=== PATIENT | female | born 1970 | race Hispanic/Latino ===

== ENCOUNTER 2017-12-19 22:55 | Emergency (ER) | payer SELFPAY ==
[2017-12-19 23:48] LABS: Absolute Lymphocytes (CBC) 2.3 K/uL (0.7-4.9); Absolute Monocytes 0.5 K/uL (0.1-1.3); Basophils % 0.7 % (0-1.3); Eosinophils % 3.8 % (0-4.4); Hematocrit 34.6 % (36.0-45.0); MCH 30.2 pg (27.0-35.0); MCV 88.1 fL (80-100); MPV 8.3 fL (7.6-11.3); Monocytes % 7.7 % (3.3-12.3); RBC Red Blood Cell Count 3.93 M/uL (3.86-4.86)
[2017-12-20 00:13] LABS: Potassium 3.7 mmol/L (3.5-5.1); Thyroid Stimulating Hormone 1.92 uIU/mL (0.36-3.74)
--- NOTE | 2017-12-20 01:07 | EDPHYS ---
Physician Documentation [facility] Name: Miguelina Price Age: 47 yrs Sex: Female : 1970 Arrival Date: 12/19/2017 Time: 23:01 Bed 20 Private MD: ED Physician Lance Blair HPI: 12/20 00:06 This 47 yrs old Female presents to ER via Ambulatory with complaints of rn Dizziness, Near Syncope. 00:06 The patient presents with lightheadedness. Onset: The symptoms/episode began/occurred 2 rn day(s) ago. Modifying factors: The symptoms are alleviated by nothing, the symptoms are aggravated by nothing. Associated signs and symptoms: Pertinent positives: near-syncope, Pertinent negatives: abdominal pain, chest pain, confusion, focal weakness, head injury, headache, seizure, syncope, vomiting. Severity of symptoms: At their worst the symptoms were moderate in the emergency department the symptoms have resolved. The patient has not experienced similar symptoms in the past. Reports has had 2 episodes of dizziness and flushed feeling to head, almost passed out, at rest, once while kneeling and other while standing, no chest pain/abd pain, no cough/vomiting/diarrhea. Feels fine currently. No new meds/drugs/supplements. No known medical problems. Also reports generalized weakness and fatigue with lack of energy.. 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 - Social history:: Smoking status: Patient/guardian denies using tobacco, never smoked. - Ebola Screening: : Patient negative for fever greater than or equal to 101.5 degrees Fahrenheit, and additional compatible Ebola Virus Disease symptoms. - Family history:: not pertinent. - Hospitalizations: : No recent hospitalization is reported. ROS: 12/20 00:06 Constitutional: Negative for fever, chills, and weight loss, Eyes: Negative for injury, rn pain, redness, and discharge, Neck: Negative for injury, pain, and swelling, Cardiovascular: Negative for chest pain, and edema, Respiratory: Negative for shortness of breath, cough, wheezing, and pleuritic chest pain, Abdomen/GI: Negative for abdominal pain, nausea, vomiting, diarrhea, and constipation, Back: Negative for injury and pain, MS/Extremity: Negative for injury and deformity, Skin: Negative for injury, rash, and discoloration, Neuro: Negative for headache, numbness, tingling, and seizure. Exam: 00:06 Constitutional: This is a well developed, well nourished patient who is awake, alert, rn and in no acute distress. Head/Face: Normocephalic, atraumatic. Eyes: Pupils equal round and reactive to light, extra-ocular motions intact. Lids and lashes normal. Conjunctiva and sclera are non-icteric and not injected. Cornea within normal limits. Periorbital areas with no swelling, redness, or edema. Neck: Trachea midline, no thyromegaly or masses palpated, and no cervical lymphadenopathy. Supple, full range of motion without nuchal rigidity, or vertebral point tenderness. No Meningismus. Cardiovascular: Regular rate and rhythm with a normal S1 and S2. No gallops, murmurs, or rubs. Normal PMI, no JVD. No pulse deficits. Respiratory: Lungs have equal breath sounds bilaterally, clear to auscultation and percussion. No rales, rhonchi or wheezes noted. No increased work of breathing, no retractions or nasal flaring. Abdomen/GI: Soft, non-tender, with normal bowel sounds. No distension or tympany. No guarding or rebound. No evidence of tenderness throughout. Skin: Warm, dry with normal turgor. Normal color with no rashes, no lesions, and no evidence of cellulitis. MS/ Extremity: Pulses equal, no cyanosis. Neurovascular intact. Full, normal range of motion. Equal circumference. Neuro: Awake and alert, GCS 15, oriented to person, place, time, and situation. Cranial nerves II-XII grossly intact. Motor strength 5/5 in all extremities. Sensory grossly intact. Cerebellar exam normal. Normal gait. Vital Signs: 12/19 23:12 BP 127 / 84; Pulse 70; Resp 16; Temp 98.3(O); Pulse Ox 99% on R/A; Weight 77.11 kg (R); sr5 Height 5 ft. 6 in. (167.64 cm); Pain 0/10; 12/20 00:00 BP 141 / 69; Pulse 61; Resp 16; Pulse Ox 98% on R/A; lp1 01:00 BP 155 / 82; Pulse 66; Resp 18; Pulse Ox 98% on R/A; lp1 12/19 23:12 Body Mass Index 27.44 (77.11 kg, 167.64 cm) sr5 MDM: 12/19 23:12 Patient medically screened. rn 12/20 01:06 Differential diagnosis: generalized weakness, hyperventilation, hypovolemia, idiopathic rn dizziness, near-syncope. Data reviewed: vital signs, nurses notes, lab test result(s), EKG, radiologic studies, CT scan, and as a result, I will discharge patient. Counseling: I had a detailed discussion with the patient and/or guardian regarding: the historical points, exam findings, and any diagnostic results supporting the discharge/admit diagnosis, lab results, radiology results, the need for outpatient follow up, to return to the emergency department if symptoms worsen or persist or if there are any questions or concerns that arise at home. Special discussion: I discussed with the patient/guardian in detail that at this point there is no indication for admission to the hospital. It is understood, however, that if the symptoms persist or worsen the patient needs to return immediately for re-evaluation. Based on the history and exam findings, there is no indication for further emergent testing or inpatient evaluation. I discussed with the patient/guardian the need to see the primary care provider for further evaluation of the symptoms. 12/19 23:20 Order name: CBC with Diff; Complete Time: 00:14 rn 12/19 23:20 Order name: Basic Metabolic Panel; Complete Time: 00: 12/19 23:20 Order name: Urine Microscopic Only rn 12/19 23:20 Order name: Troponin (emerg Dept Use Only); Complete Time: 00:14 rn 12/19 23:20 Order name: TSH; Complete Time: 00:14 rn 12/19 23:20 Order name: T4 Free; Complete Time: 00:14 12/19 23:20 Order name: IV Start; Complete Time: 23:59 rn 12/19 23:20 Order name: Urine Dipstick-Ancillary (obtain specimen); Complete Time: 01:25 rn 12/19 23:20 Order name: EKG; Complete Time: 23:21 rn 12/19 23:20 Order name: Gage Screen Profile; Complete Time: 01:05 rn 12/19 23:20 Order name: CT Head Brain wo Cont rn 12/20 01:06 Order name: Urine Dipstick--Ancillary (enter results) pa 12/20 01:06 Order name: Urine --Ancillary (enter results) pa 12/19 23:20 Order name: EKG - Nurse/Tech; Complete Time: 23:58 rn Administered Medications: No medications were administered Disposition: 12/20/17 01:07 Discharged to Home. Impression: Weakness, Near Syncope. - Condition is Stable. - Discharge Instructions: Near-Syncope, Weakness, Fatigue. - Medication Reconciliation Form, Thank You Letter, Antibiotic Education, Prescription Opioid Use form. - Follow up: Private Physician; When: As needed; Reason: Recheck today's complaints, Re-evaluation by your physician. - Problem is new. - Symptoms have improved. Signatures: Dispatcher [employer] EDMO Lance Blair MD MD rn Pena, Laura RN RN lp1 ReseckOren robertson RN RN sr5 Corrections: (The following items were deleted from the chart) : 01:07 12/20/2017 01:07 Discharged to Home. Impression: Weakness; Near Syncope. lp1 Condition is Stable. Forms are Medication Reconciliation Form, Thank You Letter, Antibiotic Education, Prescription Opioid Use. Follow up: Private Physician; When: As needed; Reason: Recheck today's complaints, Re-evaluation by your physician. Problem is new. Symptoms have improved. rn
--- NOTE | 2017-12-20 01:07 | ER ---
Nurse's Notes [facility] Name: Miguelina Price Age: 47 yrs Sex: Female : 1970 Arrival Date: 12/19/2017 Time: 23:01 Bed 20 Private MD: Diagnosis: Weakness;Near Syncope Presentation: 12/19 23:10 Presenting complaint: Patient states: reports 2 episodes of feeling lightheaded, warm sr5 all over, and short of breath. Denies CP. S/s resolved completely without intervention. Denies PMH. AA\T\Ox4, steady gait in lobby, equal unlabored resp, skin warm/dry/nc, clear speech. Transition of care: patient was not received from another setting of care. Onset of symptoms was December 18, 2017. Risk Assessment: Do you want to hurt yourself or someone else? Patient reports no desire to harm self or others. Initial Sepsis Screen: Does the patient meet any 2 criteria? No. Patient's initial sepsis screen is negative. Does the patient have a suspected source of infection? No. Patient's initial sepsis screen is negative. Care prior to arrival: None. 23:10 Method Of Arrival: Ambulatory sr5 23:10 Acuity: SUNNY 3 sr5 Triage Assessment: 23:12 General: Appears in no apparent distress. Behavior is calm, cooperative. Pain: Denies sr5 pain. Neuro: Level of Consciousness is awake, alert, obeys commands, Oriented to person, place, time, situation, Gait is steady, Speech is normal, Facial symmetry appears normal, Reports light headed, no energy, and shortness of breath. Cardiovascular: Capillary refill is brisk in bilateral fingers Patient's skin is warm and dry. Cardiovascular: Reports fatigue, lightheadedness, shortness of breath, Denies chest pain, diaphoresis. Respiratory: Reports shortness of breath at rest Respiratory effort is even, unlabored, Respiratory pattern is regular, symmetrical. GI: No signs and/or symptoms were reported involving the gastrointestinal system. : No signs and/or symptoms were reported regarding the genitourinary system. Derm: No signs and/or symptoms reported regarding the dermatologic system. Musculoskeletal: No signs and/or symptoms reported regarding the musculoskeletal system. 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 - Social history:: Smoking status: Patient/guardian denies using tobacco, never smoked. - Ebola Screening: : Patient negative for fever greater than or equal to 101.5 degrees Fahrenheit, and additional compatible Ebola Virus Disease symptoms. - Family history:: not pertinent. - Hospitalizations: : No recent hospitalization is reported. Screenin:59 Abuse screen: Denies threats or abuse. Denies injuries from another. Nutritional lp1 screening: No deficits noted. Tuberculosis screening: No symptoms or risk factors identified. Fall Risk None identified. Assessment: 23:30 General: Appears in no apparent distress. Behavior is appropriate for age. Pain: Denies lp1 pain. Neuro: Level of Consciousness is awake, alert, obeys commands, Oriented to person, place, time, situation, Peanut Farmer are equal bilaterally Gait is steady, Speech is normal, Facial symmetry appears normal, Pupils are PERRLA, Reports dizziness, a syncopal episode. Cardiovascular: Patient's skin is warm and dry. Rhythm is sinus rhythm. Respiratory: Airway is patent Respiratory effort is even, unlabored, Respiratory pattern is regular, symmetrical, Breath sounds are clear bilaterally. GI: Abdomen is non-distended. : No signs and/or symptoms were reported regarding the genitourinary system. EENT: No signs and/or symptoms were reported regarding the EENT system. Derm: Skin is pink, warm \T\ dry. Musculoskeletal: Circulation, motion, and sensation intact. 12/20 00:29 Reassessment: Patient in CT. lp1 01:25 Reassessment: Patient appears in no apparent distress at this time. Patient is alert, lp1 oriented x 3, equal unlabored respirations, skin warm/dry/pink. Patient states feeling better. Vital Signs: 12/19 23:12 BP 127 / 84; Pulse 70; Resp 16; Temp 98.3(O); Pulse Ox 99% on R/A; Weight 77.11 kg (R); sr5 Height 5 ft. 6 in. (167.64 cm); Pain 0/10; 12/20 00:00 BP 141 / 69; Pulse 61; Resp 16; Pulse Ox 98% on R/A; lp1 01:00 BP 155 / 82; Pulse 66; Resp 18; Pulse Ox 98% on R/A; lp1 12/19 23:12 Body Mass Index 27.44 (77.11 kg, 167.64 cm) sr5 ED Course: 12/19 23:01 Patient arrived in ED. es 23:04 Kelly Montalvo, RN is Primary Nurse. lp1 23:12 Triage completed. sr5 23:12 Lance Blair MD is Attending Physician. rn 23:12 Arm band placed on Patient placed in an exam room, on a stretcher, on manager discovery, sr5 on pulse oximetry. 23:40 Inserted saline lock: 20 gauge in right forearm, using aseptic technique. Blood lp1 collected. 12/20 00:00 Patient has correct armband on for positive identification. Placed in gown. Bed in low lp1 position. Call light in reach. institutional cook on. Pulse ox on. NIBP on. 00:[address] via wheelchair. kw1 00:28 CT Head Brain wo Cont In Process Unspecified. EDMS 00:28 CT completed. Patient tolerated procedure well. Patient moved back from CT. kw1 01:25 No provider procedures requiring assistance completed. IV discontinued, No lp1 redness/swelling at site. Pressure dressing applied. Administered Medications: No medications were administered Outcome: 01:07 Discharge ordered by . rn 01:26 Discharged to home ambulatory, with significant other. lp1 01:26 Condition: good 01:26 Discharge instructions given to patient, Instructed on discharge instructions, follow up and referral plans. Demonstrated understanding of instructions, follow-up care. 01:26 Patient left the ED. lp1 Signatures: Dispatcher [employer] Arianna Dorsey Roman, MD MD rn Pena, Laura, RN RN lp1 Oren Hummel RN RN sr5 Shanae Grullon kw1
[2017-12-20 01:35] LABS: Urine Bacteria <20 /HPF (<20); Urine Culture Reflex Order REFLEXED; Urine RBC <5 /HPF (NONE SEEN)
[2017-12-20 01:36] LABS: Urine Glucose NEGATIVE (NEG)
[2017-12-20 01:37] LABS: Urine Blood TRACE (NEG); Urine Protein NEGATIVE (NEG)
--- NOTE | 2017-12-20 07:14 | RAD REPORT ---
EXAM DESCRIPTION: CT - Head Brain Wo Cont - 12/20/2017 5:34 am CLINICAL HISTORY: Dizziness, near syncope A preliminary report was provided at the time of the study and reviewed prior to final report. COMPARISON: None. TECHNIQUE: Axial 5 mm thick images of the head were obtained without IV contrast. All CT scans are performed using dose optimization technique as appropriate and may include automated exposure control or mA/KV adjustment according to patient size. FINDINGS: No intracranial hemorrhage, mass, edema or shift of mid-line structures. No acute infarcti on changes seen. No abnormal extra-axial fluid collections. Ventricles are normal. Mastoid air cells and visualized portions of the paranasal sinuses are clear. No acute bony findings. IMPRESSION: Negative non-contrast CT head examination.
--- NOTE | 2017-12-20 09:39 | EKG ---
Test Date: 2017-12-19 Test Time: 23:28:29 Lead Miner: CHARLIE MEASUREMENT RESULTS: Intervals: Rate: 66 FL: 180 QRSD: 102 QT: 450 QTc: 471 [place]: P: 53 FL: 180 QRS: -64 T: 14 INTERPRETIVE STATEMENTS: Normal sinus rhythm Left axis deviation Incomplete right bundle branch block Cannot rule out Anterior infarct, age undetermined Abnormal ECG No previous ECG available for comparison Electronically Signed On 12-20-17 09:38:35 CDT by Dilip Lomeli
== END 2017-12-20 01:26 | disposition home or self-care (01) ==
LOC: ER 22:55
DX: R53.1 Weakness (principal)
CPT/HCPCS: 36415; 70450; 80048; 81003; 81015; 81025; 84439; 84443; 84484; 85025; 86308; 87086; 87088; 93005; 99285

== ENCOUNTER 2023-03-07 12:35 | Emergency (ER) | payer OTHER, SELFPAY ==
--- OUTSIDE RECORDS SUMMARY | 2023-03-07 12:39 | XMS REPORT | Continuity of Care Document ---
:1970 Author Organization [facility] t Address [address] [place] [address] [place] [id number] Care Team Providers Name Role Phone Jazmin Cohen MD Primary Care Physician [phone] NOHEMI RABAGO Attending Clinician Unavailable NOHEMI RABAGO Attending Clinician Unavailable ELZBIETA NAVA Attending Clinician Unavailable Doctor Unassigned, [place] Attending Clinician Unavailable Elzbieta Nava MD Attending Clinician Elzbieta Nava Attending Clinician Unavailable ROSS WILSON Attending Clinician Unavailable Jazmin Cohen MD Attending Clinician 2, [facility] Attending Clinician Unavailable Ross Wilson MD Attending Clinician Triny Wylie Attending Clinician Unavailable Team, [facility] Attending Clinician UnavailRaciel Ortiz DO Attending Clinician Pob, [facility] Main Attending Clinician Unavailable Nereyda Valentino DO Attending Clinician NEREYDA VALENTINO Attending Clinician Unavailable JAZMIN COHEN Attending Clinician Unavailable Provider, [facility] Attending Clinician Unavailable Kay Chavez Attending Clinician Elzbieta Nava Admitting Clinician Unavailable Triny Wylie Admitting Clinician Unavailable Physician, No Primary or Family Admitting Clinician UnavailNEREYDA Colbert Admitting Clinician Unavailable Payers Payer Name Policy Type Policy Number Effective Date Expiration Date S ource Problems Condition Condition Condition Status Onset Resolution Last Treating Co mments Source Name Details Category Date Date Treatment Clinician Date Obstructiv Obstructiv Disease Active U nivers e sleep e sleep 2- ity of apnea apnea 00:00: [address] Fatty Fatty Disease Active Univers liver liver 2 ity of 00:00: [address] Hyperchole Hyperchole Disease Active U nivers sterolemia sterolemia 1-20 it y of 00:00: [address] Vitamin D Vitamin D Disease Active Uni vers deficiency deficiency 1-20 it y of 00:00: [address] Abnormal Abnormal Disease Active Unive rs LFTs LFTs 1-20 ity of (liver (liver 00:00: [place] function function 00 Medica l tests) tests) Branch Allergies, Adverse Reactions, Alerts Allergy Allergy Status Severity Reaction(s) Onset Inactive Treating Comm ents Source Name Type Date Date Clinician NO KNOWN Drug Active Univers ALLERGIE Class ity of S [facility] Social History Social Habit Start Date Stop Date Quantity Comments Source History SDOH University o f Alcohol Frequency [place] [facility] History SDOH University o f Alcohol Std Drinks [facility] History SDOH University o f Alcohol Binge [place] [facility] Gender identity Universit y of [facility] Sexual orientation Univer sity of [facility] Exposure to 2022-09-12 2022-09-22 Not sure University of SARS-CoV-2 (event) 00:00:00 08:44:00 [facility] Alcohol intake 2022-09-22 2022-09-22 0 /d University of 00:00:00 00:00:00 [facility] History of Social 2020-02-05 2020-02-05 Univers ity of function 00:00:00 00:00:00 [facility] Tobacco use and 2016-05-15 2016-05-15 Smokeless Universit y of exposure 00:00:00 00:00:00 tobacco non-user [facility] Alcohol Comment 2016-05-15 2016-05-15 socially Universit y of 00:00:00 00:00:00 [facility] Sex [birth year] At [birth year] Universit y of 00:00:00 00:00:00 [facility] Smoking Status Start Date Stop Date Source Never smoked tobacco [facility] Medications Ordered Filled Start Stop Current Ordering Indication Dosage Frequency Signature Comments Components Source Medication Medication Date Date Medication? Clinician (SIG) Name Name phentermine 2022-0 Yes 37.5mg Take 1 Un babita 37.5 mg 5-30 tablet by ity of tablet 09:08: mouth [place] 58 daily with Medical breakfast. [place] phentermine 3-0 Yes 37.5mg Take 1 Un babita 37.5 mg 5-30 tablet by ity of tablet 09:08: mouth [place] 58 daily with Medical breakfast. [place] phentermine 3-0 Yes 37.5mg Take 1 Un babita 37.5 mg 5-30 tablet by ity of tablet 09:08: mouth [place] 58 daily with Medical breakfast. [place] phentermine 3-0 Yes 37.5mg Take 1 Un babita 37.5 mg 5-30 tablet by ity of tablet 09:08: mouth [place] 58 daily with Medical breakfast. [place] phentermine 3-0 Yes 37.5mg Take 1 Un babita 37.5 mg 5-30 tablet by ity of tablet 09:08: mouth [place] 58 daily with Medical breakfast. [place] maalox:diph 2020-2020- No 15mL 15 mL, Uni vers enhydrAMINE 04-27 Oral, ity of :lidocaine 04:45: 04:44 ONCE, 1 [place] as 2 % viscous 00 :00 dose, Fri Med ical 1:1:1 04/26/20 at [place] (FIRST-MOUT 2245, AIMEE HWASH BLM) oral suspension 15 mL ketorolac 2020- No 30mg 30 mg, Unive rs (TORADOL) 04-27 Slow IV ity of injection 04:45: 04:44 Push, [place] 30 mg 00 :00 ONCE, 1 Medical dose, Fri Branch 04/26/20 at 2245, AIMEE
Fa alleghany healthy member approving Restricted medication : NEREYDA VALENTINO DIPHENHYDRA 2020-0 2020- No Take by Un babita MINE HCL 01-21 mouth. ity of (ALLERGY 20:01: 00:00 [place] RELIEF 34 :00 Medical ORAL) Branch fluticasone 2020-0 Yes Use in [facility] ers propionate 01-21 each ity of (FLONASE 19:21: nostril [place] ALLERGY 10 daily. Medical RELIEF) 50 Branch mcg/actuati on nasal spray fluticasone 2020-0 Yes Use in [facility] ers propionate 01-21 each ity of (FLONASE 19:21: nostril [place] ALLERGY 10 daily. Medical RELIEF) 50 Branch mcg/actuati on nasal spray fluticasone 2020-0 Yes Use in [facility] ers propionate 01-21 each ity of (FLONASE 19:21: nostril [place] ALLERGY 10 daily. Medical RELIEF) 50 Branch mcg/actuati on nasal spray fluticasone 2020-0 Yes Use in [facility] ers propionate 01-21 each ity of (FLONASE 19:21: nostril [place] ALLERGY 10 daily. Medical RELIEF) 50 Branch mcg/actuati on nasal spray fluticasone 2020-0 Yes Use in [facility] ers propionate 01-21 each ity of (FLONASE 19:21: nostril [place] ALLERGY 10 daily. Medical RELIEF) 50 Branch mcg/actuati on nasal spray fluticasone 2020-0 Yes Use in [facility] ers propionate 01-21 each ity of (FLONASE 19:21: nostril [place] ALLERGY 10 daily. Medical RELIEF) 50 Branch mcg/actuati on nasal spray fluticasone 2020-0 Yes Use in [facility] ers propionate 01-21 each ity of (FLONASE 19:21: nostril [place] ALLERGY 10 daily. Medical RELIEF) 50 Branch mcg/actuati on nasal spray fluticasone 2020-0 Yes Use in [facility] ers propionate 01-21 each ity of (FLONASE 19:21: nostril [place] ALLERGY 10 daily. Medical RELIEF) 50 Branch mcg/actuati on nasal spray fluticasone 2020-0 Yes Use in [facility] ers propionate 01-21 each ity of (FLONASE 19:21: nostril [place] ALLERGY 10 daily. Medical RELIEF) 50 Branch mcg/actuati on nasal spray fluticasone 2020-0 Yes Use in [facility] ers propionate - each ity of (FLONASE 19:21: nostril [place] ALLERGY 10 daily. Medical RELIEF) 50 Branch mcg/actuati on nasal spray fluticasone 2020-0 Yes Use in [facility] ers propionate - each ity of (FLONASE 19:21: nostril [place] ALLERGY 10 daily. Medical RELIEF) 50 Branch mcg/actuati on nasal spray fluticasone 2020-0 Yes Use in [facility] ers propionate - each ity of (FLONASE 19:21: nostril [place] ALLERGY 10 daily. Medical RELIEF) 50 Branch mcg/actuati on nasal spray fluticasone 2020-0 Yes Use in [facility] ers propionate 01-21 each ity of (FLONASE 19:21: nostril [place] ALLERGY 10 daily. Medical RELIEF) 50 Branch mcg/actuati on nasal spray fluticasone 2020-0 Yes Use in [facility] ers propionate - each ity of (FLONASE 19:21: nostril [place] ALLERGY 10 daily. Medical RELIEF) 50 Branch mcg/actuati on nasal spray fluticasone 2020-0 Yes Use in [facility] ers propionate - each ity of (FLONASE 19:21: nostril [place] ALLERGY 10 daily. Medical RELIEF) 50 Branch mcg/actuati on nasal spray fluticasone 2020-0 Yes Use in [facility] ers propionate - each ity of (FLONASE 14:21: nostril [place] ALLERGY 10 daily. Medical RELIEF) 50 Branch mcg/actuati on nasal spray fluticasone 2020-0 Yes Use in [facility] ers propionate - each ity of (FLONASE 14:21: nostril [place] ALLERGY 10 daily. Medical RELIEF) 50 Branch mcg/actuati on nasal spray fluticasone 2020-0 Yes Use in [facility] ers propionate - each ity of (FLONASE 14:21: nostril [place] ALLERGY 10 daily. Medical RELIEF) 50 Branch mcg/actuati on nasal spray fluticasone 2020-0 Yes Use in [facility] ers propionate - each ity of (FLONASE 14:21: nostril [place] ALLERGY 10 daily. Medical RELIEF) 50 Branch mcg/actuati on nasal spray fluticasone 2020-0 Yes Use in Univ ers propionate - each ity of (FLONASE 14:21: nostril [place] ALLERGY 10 daily. Medical RELIEF) 50 Branch mcg/actuati on nasal spray fluticasone 2020-0 Yes Use in Univ ers propionate - each ity of (FLONASE 14:21: nostril [place] ALLERGY 10 daily. Medical RELIEF) 50 Branch mcg/actuati on nasal spray fluticasone 2020-0 Yes Use in Univ ers propionate - each ity of (FLONASE 14:21: nostril [place] ALLERGY 10 daily. Medical RELIEF) 50 Branch mcg/actuati on nasal spray fluticasone 2020-0 Yes Use in [facility] ers propionate - each ity of (FLONASE 14:21: nostril [place] ALLERGY 10 daily. Medical RELIEF) 50 Branch mcg/actuati on nasal spray fluticasone 2020-0 Yes Use in [facility] ers propionate 01-21 each ity of (FLONASE 14:21: nostril [place] ALLERGY 10 daily. Medical RELIEF) 50 Branch mcg/actuati on nasal spray fluticasone 2020-0 Yes Use in [facility] ers propionate - each ity of (FLONASE 14:21: nostril [place] ALLERGY 10 daily. Medical RELIEF) 50 Branch mcg/actuati on nasal spray fluticasone 2020-0 Yes Use in [facility] ers propionate 01-21 each ity of (FLONASE 14:21: nostril [place] ALLERGY 10 daily. Medical RELIEF) 50 Branch mcg/actuati on nasal spray fluticasone 2020-0 Yes Use in [facility] ers propionate 01-21 each ity of (FLONASE 14:21: nostril [place] ALLERGY 10 daily. Medical RELIEF) 50 Branch mcg/actuati on nasal spray bromphenira 2020-0 2020- No [id number] 5mL Take 5 mL Univers mine-pseudo - 10-09 by mouth 4 i ty of ephedrine-D 00:00: 04:59 (four) [place] as M (BROMFED 00 :00 times Medical DM) 2-30-10 daily as Bran ch mg/5 mL needed for syrup Congestion /Allergies for up to 10 days. bromphenira 2020-0 2020- No [id number] 5mL Take 5 mL Univers mine-pseudo 01-21 by mouth 4 i ty of ephedrine-D 00:00: 04:59 (four) [place] as M (BROMFED 00 :00 times Medical DM) 2-30-10 daily as Bran ch mg/5 mL needed for syrup Congestion /Allergies for up to 10 days. bromphenira 2020-0 2020- No [id number] 5mL Take 5 mL Univers mine-pseudo 01-21 by mouth 4 i ty of ephedrine-D 00:00: 04:59 (four) [place] as M (BROMFED 00 :00 times Medical DM) 2-30-10 daily as Bran ch mg/5 mL needed for syrup Congestion /Allergies for up to 10 days. methylPREDN 2020-0 2020- No [id number] Take by Acquia ISolone 4 01-21 mouth ity of mg tablets 00:00: 04:59 SEE-INSTRU [place] 00 :00 CTIONS for Medical 6 days. Branch follow package directions methylPREDN 2019-0 2019- No [id number] Take by [facility]ia [employer] [place] 4 01-21-05 mouth ity of mg tablets 00:00: 04:59 SEE-INSTRU [place] 00 :00 CTIONS for Medical 6 days. Branch follow package directions mupirocin 2 Yes [id number] Apply to Univers % ointment 3-29 area(s) 3 ity of 00:00: (three) [place] 00 times Medical daily. Branch Olopatadine Yes [id number] 1[drp] Place 1 Univers (PATADAY) 3-29 9102 Drop in ity of 0.2 % 00:00: each eye [place] ophthalmic 00 daily. Medical drops Branch mupirocin 2 Yes [id number] Apply to Univers % ointment 3-29 area(s) 3 ity of 00:00: (three) [place] 00 times Medical daily. Branch Olopatadine Yes [id number] 1[drp] Place 1 Univers (PATADAY) 3-29 9102 Drop in ity of 0.2 % 00:00: each eye [place] ophthalmic 00 daily. Medical drops Branch mupirocin 2 Yes [id number] Apply to Univers % ointment 3-29 area(s) 3 ity of 00:00: (three) [place] 00 times Medical daily. Branch Olopatadine Yes [id number] 1[drp] Place 1 Univers (PATADAY) 3-29 9102 Drop in ity of 0.2 % 00:00: each eye [place] ophthalmic 00 daily. Medical drops Branch mupirocin 2 Yes [id number] Apply to Univers % ointment 3-29 area(s) 3 ity of 00:00: (three) [place] 00 times Medical daily. Branch Olopatadine Yes [id number] 1[drp] Place 1 Univers (PATADAY) 3-29 9102 Drop in ity of 0.2 % 00:00: each eye [place] ophthalmic 00 daily. Medical drops Branch mupirocin 2 Yes [id number] Apply to Univers % ointment 3-29 area(s) 3 ity of 00:00: (three) [place] 00 times Medical daily. Branch Olopatadine Yes [id number] 1[drp] Place 1 Univers (PATADAY) 3-29 9102 Drop in ity of 0.2 % 00:00: each eye [place] ophthalmic 00 daily. Medical drops Branch mupirocin 2 Yes [id number] Apply to Univers % ointment 3-29 area(s) 3 ity of 00:00: (three) [place] 00 times Medical daily. Branch Olopatadine Yes [id number] 1[drp] Place 1 Univers (PATADAY) 3-29 9102 Drop in ity of 0.2 % 00:00: each eye [place] ophthalmic 00 daily. Medical drops Branch mupirocin 2 Yes [id number] Apply to Univers % ointment 3-29 area(s) 3 ity of 00:00: (three) [place] 00 times Medical daily. Branch Olopatadine Yes [id number] 1[drp] Place 1 Univers (PATADAY) 3-29 9102 Drop in ity of 0.2 % 00:00: each eye [place] ophthalmic 00 daily. Medical drops Branch mupirocin 2 Yes [id number] Apply to Univers % ointment 3-29 area(s) 3 ity of 00:00: (three) [place] 00 times Medical daily. Branch Olopatadine Yes [id number] 1[drp] Place 1 Univers (PATADAY) 3-29 9102 Drop in ity of 0.2 % 00:00: each eye [place] ophthalmic 00 daily. Medical drops Branch mupirocin 2 Yes [id number] Apply to Univers % ointment 3-29 area(s) 3 ity of 00:00: (three) [place] 00 times Medical daily. Branch Olopatadine Yes [id number] 1[drp] Place 1 Univers (PATADAY) 3-29 9102 Drop in ity of 0.2 % 00:00: each eye [place] ophthalmic 00 daily. Medical drops Branch mupirocin 2 Yes [id number] Apply to Univers % ointment 3-29 area(s) 3 ity of 00:00: (three) [place] 00 times Medical daily. Branch Olopatadine Yes [id number] 1[drp] Place 1 Univers (PATADAY) 3-29 9102 Drop in ity of 0.2 % 00:00: each eye [place] ophthalmic 00 daily. Medical drops Branch mupirocin 2 Yes [id number] Apply to Univers % ointment 3-29 area(s) 3 ity of 00:00: (three) [place] 00 times Medical daily. Branch Olopatadine Yes [id number] 1[drp] Place 1 Univers (PATADAY) 3-29 9102 Drop in ity of 0.2 % 00:00: each eye [place] ophthalmic 00 daily. Medical drops Branch mupirocin 2 Yes [id number] Apply to Univers % ointment 3-29 area(s) 3 ity of 00:00: (three) [place] 00 times Medical daily. Branch Olopatadine Yes [id number] 1[drp] Place 1 Univers (PATADAY) 3-29 9102 Drop in ity of 0.2 % 00:00: each eye [place] ophthalmic 00 daily. Medical drops Branch mupirocin 2 Yes [id number] Apply to Univers % ointment 3-29 area(s) 3 ity of 00:00: (three) [place] 00 times Medical daily. Branch Olopatadine Yes [id number] 1[drp] Place 1 Univers (PATADAY) 3-29 9102 Drop in ity of 0.2 % 00:00: each eye [place] ophthalmic 00 daily. Medical drops Branch mupirocin 2 Yes [id number] Apply to Univers % ointment 3-29 area(s) 3 ity of 00:00: (three) [place] 00 times Medical daily. Branch Olopatadine Yes [id number] 1[drp] Place 1 Univers (PATADAY) 3-29 9102 Drop in ity of 0.2 % 00:00: each eye [place] ophthalmic 00 daily. Medical drops Branch mupirocin 2 Yes [id number] Apply to Univers % ointment 3-29 area(s) 3 ity of 00:00: (three) [place] 00 times Medical daily. Branch Olopatadine Yes [id number] 1[drp] Place 1 Univers (PATADAY) 3-29 9102 Drop in ity of 0.2 % 00:00: each eye [place] ophthalmic 00 daily. Medical drops Branch mupirocin 2 Yes [id number] Apply to Univers % ointment 3-29 area(s) 3 ity of 00:00: (three) [place] 00 times Medical daily. Branch Olopatadine Yes [id number] 1[drp] Place 1 Univers (PATADAY) 3-29 9102 Drop in ity of 0.2 % 00:00: each eye [place] ophthalmic 00 daily. Medical drops Branch mupirocin 2 Yes [id number] Apply to Univers % ointment 3-29 area(s) 3 ity of 00:00: (three) [place] 00 times Medical daily. Branch Olopatadine Yes [id number] 1[drp] Place 1 Univers (PATADAY) 3-29 9102 Drop in ity of 0.2 % 00:00: each eye [place] ophthalmic 00 daily. Medical drops Branch mupirocin 2 Yes [id number] Apply to Univers % ointment 3-29 area(s) 3 ity of 00:00: (three) [place] 00 times Medical daily. Branch Olopatadine Yes [id number] 1[drp] Place 1 Univers (PATADAY) 3-29 9102 Drop in ity of 0.2 % 00:00: each eye [place] ophthalmic 00 daily. Medical drops Branch mupirocin 2 Yes [id number] Apply to Univers % ointment 3-29 area(s) 3 ity of 00:00: (three) [place] 00 times Medical daily. Branch Olopatadine Yes [id number] 1[drp] Place 1 Univers (PATADAY) 3-29 9102 Drop in ity of 0.2 % 00:00: each eye [place] ophthalmic 00 daily. Medical drops Branch mupirocin 2 Yes [id number] Apply to Univers % ointment 3-29 area(s) 3 ity of 00:00: (three) [place] 00 times Medical daily. Branch Olopatadine Yes [id number] 1[drp] Place 1 Univers (PATADAY) 3-29 9102 Drop in ity of 0.2 % 00:00: each eye [place] ophthalmic 00 daily. Medical drops Branch mupirocin 2 Yes [id number] Apply to Univers % ointment 3-29 area(s) 3 ity of 00:00: (three) [place] 00 times Medical daily. Branch mupirocin 2 Yes [id number] Apply to Univers % ointment 3-29 area(s) 3 ity of 00:00: (three) [place] 00 times Medical daily. Branch Olopatadine Yes [id number] 1[drp] Place 1 Univers (PATADAY) 3-29 9102 Drop in ity of 0.2 % 00:00: each eye [place] ophthalmic 00 daily. Medical drops Branch Olopatadine Yes [id number] 1[drp] Place 1 Univers (PATADAY) 3-29 9102 Drop in ity of 0.2 % 00:00: each eye [place] ophthalmic 00 daily. Medical drops Branch mupirocin 2 Yes [id number] Apply to Univers % ointment 3-29 area(s) 3 ity of 00:00: (three) [place] 00 times Medical daily. Branch Olopatadine Yes [id number] 1[drp] Place 1 Univers (PATADAY) 3-29 9102 Drop in ity of 0.2 % 00:00: each eye [place] ophthalmic 00 daily. Medical drops Branch mupirocin 2 Yes [id number] Apply to Univers % ointment 3-29 area(s) 3 ity of 00:00: (three) [place] 00 times Medical daily. Branch Olopatadine Yes [id number] 1[drp] Place 1 Univers (PATADAY) 3-29 9102 Drop in ity of 0.2 % 00:00: each eye [place] ophthalmic 00 daily. Medical drops Branch mupirocin 2 Yes [id number] Apply to Univers % ointment 3-29 area(s) 3 ity of 00:00: (three) [place] 00 times Medical daily. Branch Olopatadine Yes [id number] 1[drp] Place 1 Univers (PATADAY) 3-29 9102 Drop in ity of 0.2 % 00:00: each eye [place] ophthalmic 00 daily. Medical drops Branch mupirocin 2 Yes [id number] Apply to Univers % ointment 3-29 area(s) 3 ity of 00:00: (three) [place] 00 times Medical daily. Branch Olopatadine Yes [id number] 1[drp] Place 1 Univers (PATADAY) 3-29 9102 Drop in ity of 0.2 % 00:00: each eye [place] ophthalmic 00 daily. Medical drops Branch mupirocin 2 Yes [id number] Apply to Univers % ointment 3-29 area(s) 3 ity of 00:00: (three) [place] 00 times Medical daily. Branch Olopatadine Yes [id number] 1[drp] Place 1 Univers (PATADAY) 3-29 9102 Drop in ity of 0.2 % 00:00: each eye [place] ophthalmic 00 daily. Medical drops Branch Cholecalcif Yes [id number] 2000U Take 1 Univers robert, 1-20 capsule by ity of Vitamin D3, 00:00: mouth [place] (VITAMIN 00 daily. Medical D3) 2,000 TAKE WITH [facility] h unit FOOD capsule methocarbam Yes [id number] 500mg Take 1 Univers ol 500 mg 1-20 tablet by ity o f tablet 00:00: mouth 4 [place] 00 (four) Medical times Branch daily as needed (muscle pain or spasm). Cholecalcif Yes [id number] 2000U Take 1 Univers robert, 1-20 capsule by ity of Vitamin D3, 00:00: mouth [place] (VITAMIN 00 daily. Medical D3) 2,000 TAKE WITH Branc h unit FOOD capsule methocarbam 2016-0 Yes [id number] 500mg Take 1 Univers ol 500 mg 1-20 tablet by ity o f tablet 00:00: mouth 4 00 (four) Medical times Branch daily as needed (muscle pain or spasm). Cholecalcif Yes [id number] 2000U Take 1 Univers robert, 1-20 capsule by ity of Vitamin D3, 00:00: mouth [place] (VITAMIN 00 daily. Medical D3) 2,000 TAKE WITH Branc h unit FOOD capsule methocarbam 2016-0 Yes [id number] 500mg Take 1 Univers ol 500 mg 1-20 tablet by ity o f tablet 00:00: mouth 4 00 (four) Medical times Branch daily as needed (muscle pain or spasm). Cholecalcif Yes [id number] 2000U Take 1 Univers robert, 1-20 capsule by ity of Vitamin D3, 00:00: mouth [place] (VITAMIN 00 daily. Medical D3) 2,000 TAKE WITH Branc h unit FOOD capsule methocarbam 2016-0 Yes [id number] 500mg Take 1 Univers ol 500 mg 1-20 tablet by ity o f tablet 00:00: mouth 4 (four) Medical times Branch daily as needed (muscle pain or spasm). Cholecalcif Yes [id number] 2000U Take 1 Univers robert, 1-20 capsule by ity of Vitamin D3, 00:00: mouth [place] (VITAMIN 00 daily. Medical D3) 2,000 TAKE WITH Branc h unit FOOD capsule Cholecalcif 2016-0 Yes [id number] 2000U Take 1 Univers robert, 1-20 capsule by ity of Vitamin D3, 00:00: mouth [place] (VITAMIN 00 daily. Medical D3) 2,000 TAKE WITH Branc h unit FOOD capsule methocarbam 2016-0 Yes [id number] 500mg Take 1 Univers ol 500 mg 1-20 tablet by ity o f tablet 00:00: mouth 4 [place] 00 (four) Medical times Branch daily as needed (muscle pain or spasm). methocarbam 2017-0 Yes [id number] 500mg Take 1 Univers ol 500 mg 1-20 tablet by ity o f tablet 00:00: mouth (four) Medical times Branch daily as needed (muscle pain or spasm). Cholecalcif 2017- Yes [id number] 2000U Take 1 Univers robert, 1-20 capsule by ity of Vitamin D3, 00:00: mouth (VITAMIN 00 daily. Medical D3) 2,000 TAKE WITH Branc h unit FOOD capsule methocarbam 2017-0 Yes [id number] 500mg Take 1 Univers ol 500 mg 1-20 tablet by ity o f tablet 00:00: mouth (four) Medical times Branch daily as needed (muscle pain or spasm). Cholecalcif 2016- Yes [id number] 2000U Take 1 Univers robert, 1-20 capsule by ity of Vitamin D3, 00:00: mouth (VITAMIN 00 daily. Medical D3) 2,000 TAKE WITH Branc h unit FOOD capsule methocarbam 2016-0 Yes [id number] 500mg Take 1 Univers ol 500 mg 1-20 tablet by ity o f tablet 00:00: mouth (four) Medical times Branch daily as needed (muscle pain or spasm). Cholecalcif 2016-0 Yes [id number] 2000U Take 1 Univers robert, 1-20 capsule by ity of Vitamin D3, 00:00: mouth (VITAMIN 00 daily. Medical D3) 2,000 TAKE WITH Branc h unit FOOD capsule methocarbam 2017-0 Yes [id number] 500mg Take 1 Univers ol 500 mg 1-20 tablet by ity o f tablet 00:00: mouth (four) Medical times Branch daily as needed (muscle pain or spasm). Cholecalcif 2016-0 Yes [id number] 2000U Take 1 Univers robert, 1-20 capsule by ity of Vitamin D3, 00:00: mouth (VITAMIN 00 daily. Medical D3) 2,000 TAKE WITH Branc h unit FOOD capsule methocarbam 2017-0 Yes [id number] 500mg Take 1 Univers ol 500 mg 1-20 tablet by ity o f tablet 00:00: mouth (four) Medical times Branch daily as needed (muscle pain or spasm). Cholecalcif 2017-0 Yes [id number] 2000U Take 1 Univers robert, 1-20 capsule by ity of Vitamin D3, 00:00: mouth [place] (VITAMIN 00 daily. Medical D3) 2,000 TAKE WITH Branc h unit FOOD capsule methocarbam 2016-0 Yes [id number] 500mg Take 1 Univers ol 500 mg 1-20 tablet by ity o f tablet 00:00: mouth 4 00 (four) Medical times Branch daily as needed (muscle pain or spasm). Cholecalcif Yes [id number] 2000U Take 1 Univers robert, 1-20 capsule by ity of Vitamin D3, 00:00: mouth [place] (VITAMIN 00 daily. Medical D3) 2,000 TAKE WITH Branc h unit FOOD capsule methocarbam 2016-0 Yes [id number] 500mg Take 1 Univers ol 500 mg 1-20 tablet by ity o f tablet 00:00: mouth 4 00 (four) Medical times Branch daily as needed (muscle pain or spasm). Cholecalcif Yes [id number] 2000U Take 1 Univers robert, 1-20 capsule by ity of Vitamin D3, 00:00: mouth [place] (VITAMIN 00 daily. Medical D3) 2,000 TAKE WITH Branc h unit FOOD capsule methocarbam 2016-0 Yes [id number] 500mg Take 1 Univers ol 500 mg 1-20 tablet by ity o f tablet 00:00: mouth 4 00 (four) Medical times Branch daily as needed (muscle pain or spasm). Cholecalcif Yes [id number] 2000U Take 1 Univers robert, 1-20 capsule by ity of Vitamin D3, 00:00: mouth [place] (VITAMIN 00 daily. Medical D3) 2,000 TAKE WITH Branc h unit FOOD capsule methocarbam 2016-0 Yes [id number] 500mg Take 1 Univers ol 500 mg 1-20 tablet by ity o f tablet 00:00: mouth 4 00 (four) Medical times Branch daily as needed (muscle pain or spasm). Cholecalcif 2016-0 Yes [id number] 2000U Take 1 Univers robert, 1-20 capsule by ity of Vitamin D3, 00:00: mouth [place] (VITAMIN 00 daily. Medical D3) 2,000 TAKE WITH Branc h unit FOOD capsule methocarbam 2017-0 Yes [id number] 500mg Take 1 Univers ol 500 mg 1-20 tablet by ity o f tablet 00:00: mouth (four) Medical times Branch daily as needed (muscle pain or spasm). Cholecalcif 2017-0 Yes [id number] 2000U Take 1 Univers robert, 1-20 capsule by ity of Vitamin D3, 00:00: mouth (VITAMIN 00 daily. Medical D3) 2,000 TAKE WITH Branc h unit FOOD capsule methocarbam 2017-0 Yes [id number] 500mg Take 1 Univers ol 500 mg 1-20 tablet by ity o f tablet 00:00: mouth 4 (four) Medical times Branch daily as needed (muscle pain or spasm). Cholecalcif 2017-0 Yes [id number] 2000U Take 1 Univers robert, 1-20 capsule by ity of Vitamin D3, 00:00: mouth (VITAMIN 00 daily. Medical D3) 2,000 TAKE WITH Branc h unit FOOD capsule methocarbam 2017-0 Yes [id number] 500mg Take 1 Univers ol 500 mg 1-20 tablet by ity o f tablet 00:00: mouth (four) Medical times Branch daily as needed (muscle pain or spasm). Cholecalcif 2016-0 Yes [id number] 2000U Take 1 Univers robert, 1-20 capsule by ity of Vitamin D3, 00:00: mouth (VITAMIN 00 daily. Medical D3) 2,000 TAKE WITH Branc h unit FOOD capsule methocarbam 2017-0 Yes [id number] 500mg Take 1 Univers ol 500 mg 1-20 tablet by ity o f tablet 00:00: mouth (four) Medical times Branch daily as needed (muscle pain or spasm). Cholecalcif 2017-0 Yes [id number] 2000U Take 1 Univers robert, 1-20 capsule by ity of Vitamin D3, 00:00: mouth (VITAMIN 00 daily. Medical D3) 2,000 TAKE WITH Branc h unit FOOD capsule Cholecalcif 2017-0 Yes [id number] 2000U Take 1 Univers robert, 1-20 capsule by ity of Vitamin D3, 00:00: mouth (VITAMIN 00 daily. Medical D3) 2,000 TAKE WITH Branc h unit FOOD capsule methocarbam 2017-0 Yes [id number] 500mg Take 1 Univers ol 500 mg 1-20 tablet by ity o f tablet 00:00: mouth (four) Medical times Branch daily as needed (muscle pain or spasm). methocarbam 2017- Yes [id number] 500mg Take 1 Univers ol 500 mg 1-20 tablet by ity o f tablet 00:00: mouth (four) Medical times Branch daily as needed (muscle pain or spasm). Cholecalcif Yes [id number] 2000U Take 1 Univers robert, 1-20 capsule by ity of Vitamin D3, 00:00: mouth (VITAMIN 00 daily. Medical D3) 2,000 TAKE WITH Branc h unit FOOD capsule methocarbam Yes [id number] 500mg Take 1 Univers ol 500 mg 1-20 tablet by ity o f tablet 00:00: mouth (four) Medical times Branch daily as needed (muscle pain or spasm). Cholecalcif Yes [id number] 2000U Take 1 Univers robert, 1-20 capsule by ity of Vitamin D3, 00:00: mouth (VITAMIN 00 daily. Medical D3) 2,000 TAKE WITH Branc h unit FOOD capsule methocarbam 2016- Yes [id number] 500mg Take 1 Univers ol 500 mg 1-20 tablet by ity o f tablet 00:00: mouth (four) Medical times Branch daily as needed (muscle pain or spasm). Cholecalcif Yes [id number] 2000U Take 1 Univers robert, 1-20 capsule by ity of Vitamin D3, 00:00: mouth (VITAMIN 00 daily. Medical D3) 2,000 TAKE WITH Branc h unit FOOD capsule methocarbam 2016-0 Yes [id number] 500mg Take 1 Univers ol 500 mg 1-20 tablet by ity o f tablet 00:00: mouth (four) Medical times Branch daily as needed (muscle pain or spasm). Cholecalcif Yes [id number] 2000U Take 1 Univers robert, 1-20 capsule by ity of Vitamin D3, 00:00: mouth (VITAMIN 00 daily. Medical D3) 2,000 TAKE WITH Branc h unit FOOD capsule methocarbam 2016-0 Yes [id number] 500mg Take 1 Univers ol 500 mg 1-20 tablet by ity o f tablet 00:00: mouth (four) Medical times Branch daily as needed (muscle pain or spasm). Cholecalcif 2016- Yes [id number] 2000U Take 1 Univers robert, 1-20 capsule by ity of Vitamin D3, 00:00: mouth (VITAMIN 00 daily. Medical D3) 2,000 TAKE WITH Branc h unit FOOD capsule methocarbam 2017-0 Yes [id number] 500mg Take 1 Univers ol 500 mg 1-20 tablet by ity o f tablet 00:00: mouth 4 00 (four) Medical times Branch daily as needed (muscle pain or spasm). Cholecalcif Yes [id number] 2000U Take 1 Univers robert, 1-20 capsule by ity of Vitamin D3, 00:00: mouth [place] (VITAMIN 00 daily. Medical D3) 2,000 TAKE WITH Branc h unit FOOD capsule methocarbam 2017-0 Yes [id number] 500mg Take 1 Univers ol 500 mg 1-20 tablet by ity o f tablet 00:00: mouth 4 00 (four) Medical times Branch daily as needed (muscle pain or spasm). Cholecalcif 2016- Yes [id number] 2000U Take 1 Univers robert, 1-20 capsule by ity of Vitamin D3, 00:00: mouth (VITAMIN 00 daily. Medical D3) 2,000 TAKE WITH Branc h unit FOOD capsule methocarbam 2016-0 Yes [id number] 500mg Take 1 Univers ol 500 mg 1-20 tablet by ity o f tablet 00:00: mouth 4 (four) Medical times Branch daily as needed (muscle pain or spasm). Vital Signs Vital Name Observation Time Observation Value Comments Source Systolic blood 2022-09-22 14:07:00 121 mm[Hg[facility] [place] [facility] Diastolic blood 2022-09-22 14:07:00 77 mm[Hg] [facility] Heart rate 2022-09-22 14:07:00 70 /min [facility] Body temperature 2022-09-22 14:07:00 36.5 [facility] Respiratory rate 2022-09-22 14:07:00 18 /[facility] Body height 2022-09-22 14:07:00 170.2 cm [facility] Body weight 2022-09-22 14:07:00 64.955 [facility] BMI 2022-09-22 14:07:00 22.43 kg/m2 [facility] [place] [facility] Oxygen saturation in 2022-09-22 14:07:00 99 /min University of Arterial blood by [place] [facility] Pulse oximetry Branch Systolic blood 2020-04-27 05:00:00 120 mm[Hg] [facility]ity [facility] [place] [facility] Diastolic blood 2020-04-27 05:00:00 81 mm[Hg] Unive rsity [facility] [place] [facility] Heart rate 2020-04-27 05:00:00 71 /min [facility] [place] [facility] Respiratory rate 2020-04-27 05:00:00 17 /min [facility] [place] [facility] Oxygen saturation in 2020-04-27 05:00:00 97 /min University of Arterial blood by [facility] Pulse oximetry Branch Body temperature 2020-04-27 03:53:00 36.61 [facility] [place] [facility] Body height 2020-04-27 03:53:00 170.2 cm [facility] [place] [facility] Body weight 2020-04-27 03:53:00 77.111 kg [facility] [place] [facility] BMI 2020-04-27 03:53:00 26.63 kg/m2 [facility] [place] [facility] Systolic blood 2020-04-27 05:00:00 120 mm[Hg] Univer sity [facility] [place] [facility] Diastolic blood 2020-04-27 05:00:00 81 mm[Hg] Unive rsity [facility] [place] [facility] Heart rate 2020-04-27 05:00:00 71 /min [facility] [place] [facility] Respiratory rate 2020-04-27 05:00:00 17 /min [facility] [place] [facility] Oxygen saturation in 2020-04-27 05:00:00 97 /min University of Arterial blood by [facility] Pulse oximetry Branch Body temperature 2020-04-27 03:53:00 36.61 Dana [facility] [place] [facility] Body height 2020-04-27 03:53:00 170.2 cm [facility] [place] [facility] Body weight 2020-04-27 03:53:00 77.111 kg [facility] [place] [facility] BMI 2020-04-27 03:53:00 26.63 kg/m2 [facility] [place] [facility] Systolic blood 2020-02-05 20:30:00 140 mm[Hg] [facility] [place] [facility] Diastolic blood 2020-02-05 20:30:00 86 mm[Hg] Unive rsity [facility] [place] [facility] Heart rate 2020-02-05 20:30:00 89 /min [facility] [place] [facility] Body temperature 2020-02-05 20:30:00 37.11 Dana [facility] [place] [facility] Body height 2020-02-05 20:30:00 170.2 cm [facility] [place] [facility] Body weight 2020-02-05 20:30:00 78.472 kg [facility] [place] [facility] BMI 2020-02-05 20:30:00 27.10 kg/m2 [facility] [place] [facility] Systolic blood 2020-02-05 20:30:00 140 mm[Hg] [facility]ity [facility] [place] [facility] Diastolic blood 2020-02-05 20:30:00 86 mm[Hg] Unive rsity [facility] [place] [facility] Heart rate 2020-02-05 20:30:00 89 /min [facility] [place] [facility] Body temperature 2020-02-05 20:30:00 37.11 Dana [facility] [place] [facility] Body height 2020-02-05 20:30:00 170.2 cm [facility] [place] [facility] Body weight 2020-02-05 20:30:00 78.472 kg [facility] [place] [facility] BMI 2020-02-05 20:30:00 27.10 kg/m2 [facility] [place] [facility] Systolic blood 2020-01-22 19:20:00 130 mm[Hg] [facility]ity [facility] [place] [facility] Diastolic blood 2020-01-22 19:20:00 83 mm[Hg] Unive rsity [facility] [place] [facility] Heart rate 2020-01-22 19:20:00 88 /min [facility] [place] [facility] Body temperature 2020-01-22 19:20:00 36.83 Dana Univ ersity [facility] Respiratory rate 2020-01-22 19:20:00 17 /min [facility] [place] [facility] Body height 2020-01-22 19:20:00 170.2 cm [facility] [place] [facility] Body weight 2020-01-22 19:20:00 77.111 kg [facility] [place] [facility] BMI 2020-01-22 19:20:00 26.63 kg/m2 [facility] [place] Oxygen saturation in 2020-01-22 19:20:00 97 /min University Arterial blood by [facility] Pulse oximetry Branch Procedures Procedure Date / Time Performing Clinician Source Performed EXTERNAL PROVIDER 2022-11-11 05:01:00 Doctor Unassigned, No [facility] Branch EXTERNAL PROVIDER 2022-10-13 05:01:00 Doctor Unassigned, No [facility] Branch EXTERNAL PROVIDER 2022-09-10 05:01:00 Doctor Unassigned, No Univ ersity [facility] RECORDS Name Medical Branch EXTERNAL PROVIDER 2022-09-02 05:01:00 Doctor Unassigned, No [facility] Medical Branch ASSIGNMENT OF BENEFITS 2022-08-25 14:38:00 Doctor Unassigned, No [facility] Medical Branch EXTERNAL PROVIDER 2021-11-03 05:01:00 Doctor Unassigned, No [facility] Medical Branch ASSIGNMENT OF BENEFITS 2020-05-04 13:55:10 Doctor Unassigned, No [facility] XR CHEST 1 VW 2020-04-27 04:39:58 Nereyda Valentino [facility] LIPASE 2020-04-27 04:03:00 Nereyda Valentino [facility] TROPONIN I 2020-04-27 04:03:00 Nereyda Valentino [facility] COMP. METABOLIC PANEL 2020-04-27 04:03:00 Nereyda Valentino [facility] ([id number]) [facility] CBC WITH DIFF 2020-04-27 04:03:00 Nereyda Valentino [facility] PROTHROMBIN TIME / INR 2020-04-27 04:03:00 [facility] 2020-04-27 04:03:00 [facility]reyda Valentino [facility] OF [facility]IVACY 2020-04-27 03:33:39 Doctor Unassigned, No [facility] PRACTICES [facility] CONSENT/REFUSAL FOR 2020-04-27 03:33:23 Doctor Unassigned, No [facility] TREATMENT [facility] PATIENT QUESTIONNAIRE 2020-02-05 05:01:00 Doctor Unassigned, No [facility] Name Medical Branch MEDICAL 2020-01-29 05:01:00 Doctor Unassigned, No [facility] RELEASE/CLEARANCE FORMS Name Medical [place] Encounters Start End Encounter Admission Attending Care Care Encounter Source Date/Time Date/Time Type Type Clinicians Facility Department ID 2022-11-11 2022-11-11 Orders Doctor ANGIE 1.2.840.114 [id number] Univers 00:00:00 00:00:00 Only Unassigned, ANIBAL 350.1.13.10 ity of [facility] 4.2.7.2.686 Fernando as [phone] [address] 2022-10-13 2022-10-13 Orders Doctor ANGIE 1.2.840.114 [id number] Univers 00:00:00 00:00:00 Only Unassigned, ANIBAL 350.1.13.10 ity of [facility] 4.2.7.2.686 Fernando as [phone] [address] 2022-10-07 2022-10-07 Telephone Adum, [facility] [id number] Univers 00:00:00 00:00:00 Elzbieta BOWENS 350.1.13.10 ity of [place] [phone] Or dical NAL [address] [place] [address] 2022-10-02 2022-10-02 Outpatient EL Adum, [facility] [id number] [facility] 09:13:00 09:13:00 Elzbieta Shannon [facility] 2022-09-22 2022-09-22 Outpatient R ADUM, [facility] [id number] [facility] 09:00:00 09:37:58 ELZBIETA ity of [facility] 2022-09-22 2022-09-22 Office Adum, [facility] 1.2.840.114 [id number] Univers 09:00:00 09:37:58 Visit Elzbieta BOWENS 350.1.13.10 ity of [place] [phone] Or dical NAL [address] [place] [address] 2022-09-102022-09-10 Orders Doctor ADAMS 1.2.840.114 [id number] Univers 00:00:00 00:00:00 Only Unassigned, ANIBAL 350.1.13.10 ity of [facility] 4.2.7.2.686 Fernando as [phone] [address] 2022-09-02 2022-09-02 Orders Doctor ANGIE 1.2.840.114 [id number] Univers 00:00:00 00:00:00 Only Unassigned, ANIBAL 350.1.13.10 ity of [facility] 4.2.7.2.686 Fernando as [phone] [address] 2022-08-28 2022-08-28 Telephone Denise [facility] 1.2.840.114 [id number] Univers 00:00:00 00:00:00 [facility] 350.1.13.10 it y of Adrian [facility] 4.2.7.2.686 Fernando as GHASSAN?BLEA [phone] Or tim MAGALLANES 044 [place] MEDICAL OFFICE BUILDING 2022-08-25 2022-08-25 Firearms Specialist 2, Adc Lab [facility] 1.2.840.114 [id number] Univers 09:45:00 10:00:00 Visit Ross Wilson KWAN 350.1.1 3.10 it[place] [phone] Or tim [facility] 353 [facility] 2022-08-25 2022-08-25 Outpatient R [facility] [id number] Univers 09:45:00 09:45:00 ROSS Norris [facility] 2022-08-25 2022-08-25 Orders Doctor ADAMS 1.2.840.114 [id number] Univers 00:00:00 00:00:00 Only Unassigned, ANIBAL 350.1.13.10 ity of [facility] 4.2.7.2.686 Fernando as [phone] [address] 2021-11-12 2021-11-12 Outpatient R [facility] [id number] Univers 00:00:00 00:00:00 E, NIZAR ity o f [facility] 2021-11-03 2021-11-03 Orders Doctor ANGIE 1.2.840.114 [id number] Univers 00:00:00 00:00:00 Only Unassigned, ANIBAL 350.1.13.10 ity of [facility] 4.2.7.2.686 Fernando as [phone] [facility] 009 [place] 2021-09-26 2021-09-[address] [facility] ZARINA [id number] [facility] 08:00:00 08:00:00 Triny 69 [facility] 2021-02-21 2021-02-21 Telephone Denise MOALEX 1.2.840.114 [id number] Univers 00:00:00 00:00:00 [facility] 350.1.13.10 it y of [place] 4.2.7.2.686 Fernando as GHASSAN?BLEA [phone] Or tim [address] MEDICAL OFFICE BUILDING 2020-11-08 2020-11-08 Telephone Team, [facility] ANGIE 1.2.840.114 [id number] Univers 00:00:00 00:00:00 Health ANIBAL 350.1.13.10 it y of [facility] 4.2.7.2.686 [place] [phone] [facility] 082 [place] 2020-09-20 2020-09-[address] [facility] ZARINA [id number] [facility] 12:00:00 12:00:00 Triny Shelton [facility] 2020-07-16 2020-07-16 Patient Rashard [facility] 1.2.840.114 [id number] Univers 00:00:00 00:00:00 Outreach Raciel PRIMARY 350.1.13.10 i ty of [place] C[place]7.2.[place] [phone] Or tim [address] [place] [address] 2020-07-16 2020-07-16 Patient Rashard [facility] 1.2.840.114 [id number] 00:00:00 00:00:00 Outreach Raciel PRIMARY 350.1.13.10 Adalberto CARE 4.2.7.2.686 PAVILLION [id number] [id number] 2020-05-04 2020-05-04 Outpatient R HUMA [facility] [id number] Univers 08:30:00 08:30:00 ROSS Norris [facility] 2020-05-04 2020-05-04 Firearms Specialist Hung, Adc Lab Main [facility] 1.2.8 40.114 [id number] Univers 07:56:29 08:11:29 Visit Ross Wilson 350.1.1 3.10 ity of [place] Profess[place] [phone] Or dical [address] 2020-05-04 2020-05-04 Firearms Specialist Hung, [facility] 1.2.840.114 [id number] 07:56:29 08:11:29 Visit Lab Main Kwan 350.1.13.10 [place] 4.2.7.2.686 Professio [phone] [address] 2020-05-04 2020-05-04 Orders Doctor ADAMS 1.2.840.114 [id number] Univers 00:00:00 00:00:00 Only Unassigned, ANIBAL 350.1.13.10 ity of [place] [facility] 4.2.7.2.686 Fernando as [id number] [facility] 009 [place] 2020-05-04 2020-05-04 Orders Doctor ADAMS 1.2.840.114 [id number] 00:00:00 00:00:00 Only Unassigned, ANIBAL 350.1.13.10 [place] [facility] 4.2.7.2.686 [id number] [id number] 2020-04-26 2020-04-27 Emergency [facility] 1.2.840.114 [id number] Univers 21:46:00 00:23:00 Nereyda Bowens 350.1.13.10 ity of [place].2.[place] [phone] [facility] 084 [place] 2020-04-26 2020-04-27 Emergency X [facility] ERT [id number] Univers 21:46:00 00:23:00 NEREYDA vizcaino [facility] 2020-04-26 2020-04-27 Emergency [facility] 1.2.840.114 [id number] 21:46:00 00:23:00 Nereyda Bowens 350.1.13.10 [place] 4.2.7.2.686 [place] [id number] [id number] 2020-02-07 2020-02-07 Telephone [facility] 1.2.840.114 [id number] [facility] 00:00:00 00:00:00 Jazmin [facility] 350.1.13.10 it y of [place]wan 4.2.7.2.686 [place] as Professio [phone] [address] Office [facility] 2020-02-07 2020-02-07 Telephone [facility] 1.2.840.114 [id number] 00:00:00 00:00:00 Jazmin Olivares 350.1.13.10 [place] 4.2.7.2.686 Professio [phone] [place] [address] Office [facility] 2020-02-05 2020-02-05 Office [facility] 1.2.840.114 [id number] [facility] 14:48:34 15:41:02 Visit Jazmin [facility] 350.1.13.10 it y of [place] 4.2.7.2.686 Fernando as Professio [phone] [address] Office [facility] 2020-02-05 2020-02-05 Office [facility] 1.2.840.114 [id number] 14:48:34 15:41:02 Visit [facility] 350.1.13.10 [place] 4.2.7.2.686 Professio [phone] [place] [address] Office Building [facility] 2020-02-05 2020-02-05 Outpatient R [facility] [id number] [facility] 15:00:00 15:00:00 JAZMIN vizcaino [facility] 2020-02-05 2020-02-05 Orders Doctor ANGIE 1.2.840.114 [id number] Univers 00:00:00 00:00:00 Only Unassigned, ANIBAL 350.1.13.10 ity of [facility] 4.2.7.2.686 Fernando as [phone] [address] 2020-02-05 2020-02-05 Orders Doctor ANGIE 1.2.840.114 [id number] 00:00:00 00:00:00 Only Unassigned, ANIBAL 350.1.13.10 [facility] 4.2.7.2.686 [id number] 2020-02-01 2020-02-01 [place] Denise [facility] 1.2.840.114 [id number] Univers 00:00:00 00:00:00 [facility] 350.1.13.10 it y of [place] 4.2.7.2.686 Fernando as Professio [phone] [address] Office Building One 2020-01-29 2020-01-29 Orders Doctor ADAMS 1.2.840.114 [id number] Univers 00:00:00 00:00:00 Only Unassigned, ANIBAL 350.1.13.10 ity of [facility] 4.2.7.2.686 Fernando as [phone] [address] 2020-01-29 2020-01-29 Orders Doctor ADAMS 1.2.840.114 [id number] 00:00:00 00:00:00 Only Unassigned, ANIBAL 350.1.13.10 [facility] 4.2.7.2.686 [id number] 2020-01-22 2020-01-22 Urgent Provider, [facility] Urgent Care [facility] 1.2.840.114 [id number] Univers 13:50:09 14:10:09 Care Kay Interiano [facility] 350.1.13.10 ity of [place] 4.2.7.2.686 Fernando as Professio [phone] [facility] 044 [place] Office Building One 2020-01-22 2020-01-22 Outpatient R [facility] [id number] Univers 14:00:00 14:00:00 ity of [facility] 2020-01-22 2020-01-22 Letter Doctor ADAMS 1.2.840.114 [id number] Univers 00:00:00 00:00:00 (Out) Unassigned, ANIBAL 350.1.13.10 ity of [facility] 4.2.7.2.686 Fernando as [phone] [facility] 044 Branch 2019-09-25 2019-09-25 Outpatient SARATH Wylie, [facility] ZARINA [id number] [facility] 12:00:00 12:00:00 Triny Duran [facility] Results Test Test Test Results Result Source Description Time Comments Comments XR CHEST 1 VW 2020-04- No active pulmonary Un iversity of 02 disease. RL: 6200AFC: Fernando as Medical 04:55:27 [id number] END OF REPORT Branc h Ordering Physician: NEREYDA VALENTINO Clinical Indication: chest pain Additional Clinical Information: Comparison: None Technique: Portable chest obtained at 2255 hours Findings: There are no infiltrates. There are no effusions. The heart sizeis normal. [facility], Radiant Results Inft User - 04/26/2020 10:56 PM CSTOrdering Physician: NEREYDA VALENTINOClinical Indication: chest pain Additional Clinical Information:Comparison: NoneTechnique: Portable chest obtained at 2255 hoursFindings: There are no infiltrates. There are no effusions. The heart sizeis normal.IMPRESSIONNo active pulmonary disease.RL: 6200AFC: [id number] OF REPORT aPTT 2020-04-27 04:48:00 Test Item Value Reference Range Interpretation Comme nts APTT Patient (test code = See_Comment [ Automated message] The 3173-2) system which ge nerated this result tra nsmitted reference range : 23 - 38 Seconds. The re ference range was not u sed to interpret this result as normal/abnormal . BRADLY (test code = BRADLY) The [facility] patient population mean normal value for aPTT is 30 seconds. Lab Interpretation (test Normal code = 27501-5) [facility] [id number] 04:46:00 Test Item Value Reference Range Interpretation Comments PROTIME PATIENT (test See_Comment [Auto mated message] code = 5964-2) The system wh ich generated this result transmitted ref erence range: 12.0 - 1 4.7 Seconds. The re ference range was not u sed to interpret this result as normal/abnor mal. INR (test code = 6301-6) Nor mal INR <1.1; Warfarin Therap eutic range 2.0 to 3. 0 or 2.5 to 3.5, dep ending upon the indica tions. Lab Interpretation (test Normal code = 11547-1) [facility] [id number] 04:34:00 Test Item Value Reference Range Interpretation Comments TROPONIN I (test <0.012 See_Comment [Automated code = 2969691161) message] The system which generated this result transmitted reference range : <=0.034 ng/mL. The reference range was not used to interpr et this result as normal/abnormal . BRADLY (test code = Equal or Less than BRADLY) 0.034 ng/ml---Normal ?Note: Cardiac troponin begins to rise 3-4 hours after the onset of ischemia. Repeat in 4-6 hours if the sample was drawn within 3-4 hours of the onset of the symptom and found normal. Between 0.035 and 0.120 ng/mL--- Borderline. Questionable myocardial injury or necrosis ? ?Note: Serial measurement may be necessary to confirm or exclude the diagnosis of myocardial injury or necrosis; Clinical correlation (symptoms, EKGs, imaging studies, and others) required; Repeat in 4-6 hours if clinically indicated. ? Equal or Higher than 0.121 ng/mL---Abnormal. Myocardial Injury or Necrosis Likely ? Biotin has been reported to cause a negative bias, interpret results relative to patient's use of biotin. ? Lab Interpretation Normal (test code = 29594-2) [facility][id number])2020-04-27 04:23:00 Test Item Value Reference Range Interpretation Comments NA (test code = 137 mmol/L 135-145 1524995677) K (test code = 3.8 mmol/L 3.5-5 0374157236) CL (test code = 103 mmol/L 98-108 7197405460) CO2 TOTAL (test code = 28 mmol/L 23-31 5004442879) AGAP (test code = 2-16 2203648221) BUN (test code = 13 mg/dL 7-23 9573124107) GLUCOSE (test code = 108 mg/dL 70-110 8632112533) CREATININE (test code = 0.63 mg/dL 0.5-1.04 3295472391) TOTAL BILI (test code = 0.4 mg/dL 0.1-1.1 4533373035) CALCIUM (test code = 9.3 mg/dL 8.6-10.6 9404508973) T PROTEIN (test code = 7.1 g/dL 6.3-8.2 5318358829) ALBUMIN (test code = 4.1 g/dL 3.5-5 7322461733) ALK PHOS (test code = 129 U/L 34-122 H 8571867148) ALTv (test code = 197 U/L 5-35 H 1742-6) AST(SGOT) (test code = 297 U/L 13-40 H 3474051856) eGFR Calculation mL/min/1.73m2 (Non-) (test code = 0557021280) eGFR Calculation mL/min/1.73m2 () (test code = 7436904809) BRADLY (test code = BRADLY) Association of Glomerular Filtration Rate (GFR) and Staging of Kidney Disease* + --+ --+ ------+| GFR (mL/min/1.73 m2) ?| With Kidney Damage ?| ?Without Kidney Damage+ --------+ --------+ +| ?>90 ?| ?Stage one ?| ? Normal ?+ ---+ ---+ -------+| ?60-89 ?| ?Stage two ?| ? Decreased GFR ? + --+ --+ ------+| ?30-59 ?| ?Stage three ?| ? Stage three ? + --+ --+ ------+| ?15-29 ?| ?Stage four ? | ? Stage four ?+ ---+ ---+ -------+| ?<15 (or dialysis) ? ?| ?Stage five ? | ? Stage five ?+ ---+ ---+ -------+ *Each stage assumes the associated GFR level has been in effect for at least three months. ?Stages 1 to 5, with or without kidney disease, indicate chronic kidney disease. Notes: Determination of stages one and two (with eGFR >59mL/min/1.73 m2) requires estimation of kidney damage for at least three months as defined by structural or functional abnormalities of the kidney, manifested by either:Pathological abnormalities or Markers of kidney damage (including abnormalities in the composition of the blood or urine or abnormalities in imaging tests). Lab Interpretation Abnormal (test code = 18068-7) [facility] [id number] 04:23:00 Test Item Value Reference Range Interpretation Comments LIPASE (test code = 6685420947) 126 U/L 0-220 Lab Interpretation (test code = Normal 84491-3) [facility] [id number] 04:19:00 Test Item Value Reference Range Interpretation Comments WBC (test code = See_Comment [Automated message] 9890-2) The system [employer] generated this result transmitted ref erence range: 4.30 - 1 1.10 10*3/?L. The re ference range was not u sed to interpret this result as normal/abnor mal. RBC (test code = See_Comment [Automated message] 099-8) The system [employer] generated this result transmitted ref erence range: 3.93 - 5 .25 10*6/?L. The re ference range was not u sed to interpret this result as normal/abnor mal. HGB (test code = 11.8 g/dL 11.6-15 718-7) HCT (test code = 35.7 % 35.7-45.2 4544-3) MCV (test code = 87.9 fL 80.6-95.5 787-2) MCH (test code = 29.1 pg 25.9-32.8 785-6) MCHC (test code = 33.1 g/dL 31.6-35.1 786-4) RDW-SD (test code 40.9 fL 39-49.9 = 70717-5) RDW-CV (test code 12.6 % 12-15.5 = 788-0) PLT (test code = See_Comment [Automated message] 727-3) The system [employer] generated this result transmitted ref erence range: 166 - 35 8 10*3/?L. The re ference range was not u sed to interpret this result as normal/abnor mal. MPV (test code = 10.2 fL 9.5-12.9 56497-7) NRBC/100 WBC (test See_Comment [Automat ed message] code = 6488703682) The syste m which generated this result transmitted ref erence range: 0.0 - 10 .0 /100 WBCs. The refer ence range was not u sed to interpret this result as normal/abnor mal. NRBC x10^3 (test <0.01 See_Comment [Automated message] code = 1823771295) The syste m which generated this result transmitted ref erence range: 10*3/?L. The reference range was not used to interpr et this result as normal/abnormal . GRAN MAT (NEUT) % 42.2 % (test code = 770-8) IMM GRAN % (test 0.40 % code = 4421891023) LYMPH % (test code 42.7 % = 736-9) MONO % (test code 10.1 % = 5905-5) EOS % (test code = 4.0 % 713-8) BASO % (test code 0.6 % = 706-2) GRAN MAT 2.23 10*3/uL 1.88-7.09 x10^3(ANC) (test code = 7927641490) IMM GRAN x10^3 <0.03 0-0.06 (test code = 7225326603) LYMPH x10^3 (test 2.25 10*3/uL 1.32-3.29 code = 731-0) MONO x10^3 (test 0.53 10*3/uL 0.33-0.92 code = 742-7) EOS x10^3 (test 0.21 10*3/uL 0.03-0.39 code = 711-2) BASO x10^3 (test 0.03 10*3/uL 0.01-0.07 code = 704-7) [facility]"
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
[2023-03-07 13:50] VITALS: TEMP 98.2; O2SAT 100
[2023-03-07 13:51] VITALS: BP 114/72
== END 2023-03-07 13:44 | disposition home or self-care (01) ==
LOC: ER 12:35
DX: M54.50 Low back pain, unspecified (principal); S16.1XXA Strain of muscle, fascia and tendon at neck level, initial encounter; V49.50XA Passenger injured in collision with unspecified motor vehicles in traffic accident, initial encounter
CPT/HCPCS: 99283